=== PATIENT | male | born 1960 | race Caucasian/White ===

== ENCOUNTER 2017-10-28 08:35 | Emergency (ER) | payer OTHER ==
[2017-10-28] MEDS ORDERED: IV NORMAL SALINE 1,000ML 1,000 ML IV SCH (09:19)
[2017-10-28] MEDS ORDERED: ONDANSETRON PF 4 MG/2 ML VIAL. ONE (09:32)
[2017-10-28] MEDS ORDERED: ONDANSETRON PF 4 MG/2 ML VIAL. IV ONE (09:45)
[2017-10-28 09:47] LABS: BASO # 0.1 x10^3/uL (0.0-0.2); BASO % 1 % (0-3); EOS # 0.2 x10^3/uL (0.0-0.7); EOS % 2 % (0-3); HEMATOCRIT 43.9 % (39.0-53.0); HEMOGLOBIN 15.6 g/dL (13.0-17.5); LYMPH # 2.4 x10^3/uL (1.0-4.8); LYMPH % 28 % (24-48); MEAN CORPUSCULAR HEMOGLOBIN 31 pg (25-35); MEAN CORPUSCULAR HGB CONC 35 g/dL (31-37); MEAN CORPUSCULAR VOLUME 88 fL (79-100); MONO % 12 % (0-9); NEUT # 4.9 x10^3uL (1.8-7.7); NEUT % 58 % (31-73); PLATELET COUNT 249 x10^3/uL (140-400); RED BLOOD COUNT 4.98 x10^6/uL (4.30-5.70); RED CELL DISTRIBUTION WIDTH 12.6 % (11.5-14.5); WHITE BLOOD COUNT 8.5 x10^3/uL (4.0-11.0)
[2017-10-28 10:09] LABS: ALBUMIN 3.9 g/dL (3.4-5.0); CALCIUM 9.4 mg/dL (8.5-10.1); CREATININE 0.9 mg/dL (0.7-1.3); GFR 87.3; POTASSIUM 4.2 mmol/L (3.5-5.1); TOTAL BILIRUBIN 0.4 mg/dL (0.2-1.0); TOTAL PROTEIN 7.8 g/dL (6.4-8.2)
--- NOTE | 2017-10-28 10:21 | RAD ---
Chest x-ray Indication: Left arm pain Technique: PA and lateral views of the chest Comparison: None Findings: Heart is normal in size. Lungs are clear. No pneumothorax or pleural effusion. Visualized bony thorax is within normal limits. Impression: No acute cardiopulmonary process.
--- NOTE | 2017-10-28 12:35 | RAD ---
COMPLETE ABDOMINAL ULTRASOUND Clinical History: Elevated lipase, abdominal discomfort Comparison: None. Technique: Sonographic examination of the abdomen was performed and multiple grayscale and duplex Doppler static images were obtained. Findings: Study is limited due to bowel gas. Patient also had breakfast. The liver measures 15.9 cm. It demonstrates diffuse increased echogenicity consistent with steatosis. Portal flow is hepatopetal. The common bile duct is normal in caliber, measuring 0.3 cm in diameter. The gallbladder wall is not thickened. There is no cholelithiasis or pericholecystic fluid. The pancreas is not well visualized due to overlying bowel gas. The right kidney is normal in morphology and echotexture and measures 12.2 x 6.5 x 6.5 cm. The left kidney is normal in morphology and echotexture and measures 12.1 x 5.7 x 6.2 cm. There is no hydronephrosis. The spleen is not enlarged, measuring 11.2 cm. Visualized portions of the abdominal aorta appear normal. The aorta measures up to 1.9 cm. The IVC is not well visualized due to bowel gas. IMPRESSION: 1. No acute process visualized by ultrasound. 2. Hepatic steatosis.
[2017-10-28] MEDS ORDERED: PRED20TA PO (13:02)
--- NOTE | 2017-10-28 13:03 | PHYS DOC ---
Past History Past Medical History: No Pertinent History Past Surgical History: Other Alcohol Use: None Drug Use: None Adult General Chief Complaint Chief Complaint: UPPER EXTREMITY PAIN HPI HPI Patient is a 57-year-old male brought to the ED by his . Patient is complaining of numbness and tingling sensation of his left arm which he has had since Thursday. Patient believes it is his second, third, and fourth fingers that are affected. It is described at sometimes as a "ache" on the underside of his arm. Sometimes it feels like "when you put your time on a battery". He has no chest pain. No shortness of breath. He has nausea but no vomiting. Some generalized abdominal discomfort. A few episodes of diarrhea. He has been tired. He's had no runny nose, no cough. Patient states he has had increased stress both with his job and with his family. Patient feels anxiety and he feels lightheaded. Patient states he has had episodes like this twice in the past. In 2015 he went to [place] and was evaluated. He had a nuclear stress test that was reported to be normal. He has never had a heart catheter. In 2014 he states he was admitted here and also had a nuclear stress test at that time which was reported to be negative. Both of those times, the patient believes his symptoms lasted about 1 or 2 weeks and went away by themselves. Patient did not really follow up with his primary care doctor for further evaluation, after the symptoms went away he just considered it over at that time. Patient is not a smoker. PCP at [facility] Review of Systems Review of Systems Constitutional: Denies fever or chills [] HENT: Denies nasal congestion or sore throat [] Respiratory: Denies cough or shortness of breath [] Cardiovascular: No chest pain, the pain and symptoms are of the left arm only GI: As in history of present illness : Denies dysuria or hematuria [] Musculoskeletal: Denies back pain or joint pain [] Integument: Denies rash or skin lesions [] Neurologic: Denies headache, focal weakness or sensory changes [] All other systems were reviewed and found to be within normal limits, except as documented in this note. Current Medications Current Medications Current Medications Medications (Trade) Dose Ordered Sig/Louise Start Time Stop Time Status Last Admin Dose Admin Ondansetron HCl (Zofran) 4 mg [employer] ONCE 10/28/17 09:32 10/28/17 09:33 DC Sodium Chloride 1,000 ml @ 1,000 mls/hr Q1H 10/28/17 09:19 10/28/17 10:18 DC 10/28/17 09:38 1,000 MLS/HR Allergies Allergies Allergies Coded Allergies Type Severity Reaction Last Updated Verified No Known Drug Allergies 10/28/17 No Physical Exam Physical Exam Constitutional: Well developed, well nourished, no acute distress, non-toxic appearance. Alert, appropriate, mentating normally, no acute distress, warm and dry. Vital signs stable. HENT: Normocephalic, atraumatic, bilateral external ears normal, nose normal. [ ] Eyes: conjunctiva normal, no discharge. [] Neck: Normal range of motion, no stridor. [] Cardiovascular:Heart rate regular rhythm, no murmur [] Lungs & Thorax: Bilateral breath sounds clear to auscultation [] Abdomen: Bowel sounds normal, soft, nondistended, no masses, no pulsatile masses. Very mild diffuse tenderness to palpation especially in the upper abdomen. Nonlocalized. No rebound or guarding. Skin: Warm, dry, no erythema, no rash. [] Extremities: No tenderness, no cyanosis, no clubbing, ROM intact, no edema. [] Neurologic: Alert and oriented X 3, normal motor function, no focal deficits noted. [] Current Patient Data Vital Signs Vital Signs Date Time Temp Pulse Resp B/P (MAP) Pulse Ox O2 Delivery O2 Flow Rate FiO2 10/28/17 12:25 80 144/62 (89) 97 Room Air 10/28/17 08:48 98.3 22 Lab Results Laboratory Tests Test 10/28/17 09:29 White Blood Count 8.5 x10^3/uL (4.0-11.0) Red Blood Count 4.98 x10^6/uL (4.30-5.70) Hemoglobin 15.6 g/dL (13.0-17.5) Hematocrit 43.9 % (39.0-53.0) Mean Corpuscular Volume 88 fL (79-100) Mean Corpuscular Hemoglobin 31 pg (25-35) Mean Corpuscular Hemoglobin Concent 35 g/dL (31-37) Red Cell Distribution Width 12.6 % (11.5-14.5) Platelet Count 249 x10^3/uL (140-400) Neutrophils (%) (Auto) 58 % (31-73) Lymphocytes (%) (Auto) 28 % (24-48) Monocytes (%) (Auto) 12 % (0-9) H Eosinophils (%) (Auto) 2 % (0-3) Basophils (%) (Auto) 1 % (0-3) Neutrophils # (Auto) 4.9 x10^3uL (1.8-7.7) Lymphocytes # (Auto) 2.4 x10^3/uL (1.0-4.8) Monocytes # (Auto) 1.0 x10^3/uL (0.0-1.1) Eosinophils # (Auto) 0.2 x10^3/uL (0.0-0.7) Basophils # (Auto) 0.1 x10^3/uL (0.0-0.2) Sodium Level 136 mmol/L (136-145) Potassium Level 4.2 mmol/L (3.5-5.1) Chloride Level 100 mmol/L (98-107) Carbon Dioxide Level 27 mmol/L (21-32) Anion Gap 9 (6-14) Blood Urea Nitrogen 12 mg/dL (8-26) Creatinine 0.9 mg/dL (0.7-1.3) Estimated GFR (Cockcroft-Gault) 87.3 BUN/Creatinine Ratio 13 (6-20) Glucose Level 95 mg/dL (70-99) Calcium Level 9.4 mg/dL (8.5-10.1) Magnesium Level 2.0 mg/dL (1.8-2.4) Total Bilirubin 0.4 mg/dL (0.2-1.0) Aspartate Amino Transferase (AST) 31 U/L (15-37) Alanine Aminotransferase (ALT) 61 U/L (16-63) Alkaline Phosphatase 83 U/L (46-116) Creatine Kinase 111 U/L (39-308) Creatine Kinase MB (Mass) 0.8 ng/mL (0.0-3.6) Creatine Kinase MB Relative Index 0.7 % (0-4) Troponin I Quantitative < 0.017 ng/mL (0-0.055) DF-Woc-I-Type Natriuretic Peptide 10 pg/mL (0-124) Total Protein 7.8 g/dL (6.4-8.2) Albumin 3.9 g/dL (3.4-5.0) Albumin/Globulin Ratio 1.0 (1.0-1.7) Lipase 476 U/L (73-393) H EKG EKG 12-lead EKG read by me. Sinus rhythm. Heart rate 64. There are no acute ST or T wave changes indicative of ischemia or infarction. No STEMI. No rhythm disturbance.[id number][] Radiology/Procedures Radiology/Procedures [] Course & Med Decision Making Course & Med Decision Making Pertinent Labs and Imaging studies reviewed. (See chart for details) 57-year-old male presents with 5 day history of left arm symptoms including numbness, tingling, and somewhat of shock like complaints. His left arm symptoms do sound somewhat radicular although he thinks they go to his second, third, and fourth fingers. He says they definitely don't go to his thumb or pinky finger. Not sure what to make of that. He doesn't have any pain in his neck, no neck injury. Also he is having nausea, abdominal discomfort, and diarrhea. I don't believe these 2 things are likely to be related. He's had episodes of similar left arm complaints in the past without the GI symptoms. Cardiac evaluation negative. Lipase is mildly elevated. I ordered an abdominal ultrasound and although the pancreas was not well seen due to intestinal gas, it was a negative study otherwise. Pt remained stable and comfortable in the ED. I discussed with the patient and his that we have not explained his symptoms but have ruled out some serious causes. With ongoing symptoms for literally days, I feel that a negative EKG and cardiac enzymes does rule out cardiac ischemia as a cause. I explained this to the patient and his . I urged him to follow up with his primary care doctor. Patient is frustrated that "they can ever figure out what is wrong with him" and that his arm is bothering him. I feel that There is reasonably good chance that this may be some type of radiculopathy or nerve pain. I feel that a short course of prednisone as a trial would be reasonable. Patient wants to try that. See instructions for plan. [] Dragon Disclaimer Dragon Disclaimer This electronic medical record was generated, in whole or in part, using a voice recognition dictation system. Departure Departure: Impression: Primary Impression: Left arm pain Additional Impressions: Cervical radiculopathy Elevated lipase Disposition: 01 HOME, SELF-CARE Condition: STABLE Referrals: THEA BAUER MD (PCP) Patient Instructions: Cervical Radiculopathy, [id number] Additional Instructions: As we discussed, I believe we should try treating your left arm symptoms with a short course of prednisone and see if that helps. If it is a "pinched nerve or some other type of nerve pain or inflammation, that often will help. Follow-up with your primary care doctor for further evaluation. Your lipase, pancreas enzyme, was mildly elevated. I recommend clear liquids for 2 days then diet as tolerated. Discuss this with your primary care doctor. They were not able to get a good look at your pancreas on the ultrasound today. If symptoms persist, they might want to repeat an ultrasound as an outpatient. Scripts Prednisone (PREDNISONE) 20 Mg Tablet 1 TAB PO BID, #10 TAB Prov: APARNA BARRETT MD 10/28/17 Problem Qualifiers APARNA BARRETT MD Oct 28, 2017 13:03
[2017-10-28 13:24] VITALS: BP 153/81
--- NOTE | 2017-10-28 15:49 | EKG ---
[address] [address] Test Date: 2017-10-28 Test Time: 08:44:32 Pat Name: RAFAEL LO Department: Room: Gender: M Order Entry Technician: GUSTAVO : 1960 Requested By: APARNA BARRETT Order Number: [id number] Reading MD: Michael Agrawal Measurements Intervals [place] Rate: 64 P: 61 OR: 176 QRS: 44 QRSD: 100 T: 34 QT: 400 QTc: 417 Interpretive Statements SINUS RHYTHM Electronically Signed On 11-02-2017 16:41:58 LABORATORY IMMUNOLOGIST by Michael Agrawal
== END 2017-10-28 13:25 | disposition home or self-care (01) ==
LOC: ER 08:35
DX: M79.602 Pain in left arm (principal); M54.12 Radiculopathy, cervical region; R74.8 Abnormal levels of other serum enzymes; R10.84 Generalized abdominal pain; R19.7 Diarrhea, unspecified
CPT/HCPCS: 36415; 71020; 76700; 80053; 82553; 83690; 83735; 83880; 84484; 85025; 93005; 96361; 96374; 99285; J2405; J7030

== ENCOUNTER 2018-01-31 17:50 | Emergency (ER) | payer OTHER ==
[~2018-01-31] VITALS: Ht 177.8 cm; Wt 126.1 kg
[~2018-01-31 17:50] MED LIST: PRED20TA PO
[2018-01-31 19:01] VITALS: BP 187/101
[2018-01-31] MEDS ORDERED: FLUT12AE IH (19:21)
--- NOTE | 2018-01-31 19:21 | PHYS DOC ---
Past History Past Medical History: No Pertinent History Past Surgical History: Tonsillectomy, Other Alcohol Use: None Drug Use: None Adult General Chief Complaint Chief Complaint: LOWER EXTREMITY EDEMA HPI HPI Patient is a 57 year old M who presents with bilateral lower extremity swelling over the past 2 days. Jimenez states that he has had respiratory symptoms over the past 6 weeks. He was initially tested negative for the flu but given Tamiflu. He feels that his symptoms did not resolve and was then started on azithromycin. He feels that his symptoms improved slightly however worsened thereafter. He was started on Levaquin 2 days ago for his cough. He has also been taking multiple cough medications and ibuprofen 600 mg as needed. He states that he noticed his leg swelling 2 days ago. It is in both legs and equal. He describes mild tightness in his ankles bilaterally. He denies redness or warmth and either leg. He denies shortness of breath when lying flat. He has no pain. He is urinating regularly without difficulty. He has no other associated symptoms. He has no other exacerbating or relieving factors. He has had multiple cardiac workups for her previous chest pain that of all been negative. His last stress test was approximately 6 months ago and was found to be negative. He takes no medications on a regular basis. He is not a smoker nor see a former smoker. He has no family history of heart disease. He has no other risk factors. Review of Systems Review of Systems Constitutional: Denies fever or chills [] Eyes: Denies change in visual acuity, redness, or eye pain [] HENT: Denies nasal congestion or sore throat [] Respiratory: Denies shortness of breath [] Cardiovascular: No additional information not addressed in HPI [] GI: Denies abdominal pain, nausea, vomiting, bloody stools or diarrhea [] : Denies dysuria or hematuria [] Musculoskeletal: Denies back pain or joint pain [] Integument: Denies rash or skin lesions [] Neurologic: Denies headache, focal weakness or sensory changes [] Endocrine: Denies polyuria or polydipsia [] All other systems were reviewed and found to be within normal limits, except as documented in this note. Family History Family History No pertinent family medical history was reported Current Medications Current Medications Current medications reviewed Allergies Allergies Allergies Coded Allergies Type Severity Reaction Last Updated Verified No Known Drug Allergies 10/28/17 No Physical Exam Physical Exam Constitutional: Well developed, well nourished, no acute distress, non-toxic appearance. [] HENT: Normocephalic, atraumatic, Eyes: EOMI, conjunctiva normal, no discharge. [] Neck: Normal range of motion, no tenderness, supple, no stridor. [] Cardiovascular:Heart rate regular rhythm, no murmur [] Lungs & Thorax: Bilateral breath sounds clear to auscultation [] Abdomen: Bowel sounds normal, soft, no tenderness, no masses, no pulsatile masses. [] Skin: Warm, dry, no erythema, no rash. [] Back: No tenderness, no CVA tenderness. [] Extremities: No tenderness, no cyanosis, no clubbing, ROM intact, bilateral symmetric pitting edema from the feet to the mid lower leg. No erythema or tenderness noted. Neurologic: Alert and oriented X 3, normal motor function, normal sensory function, no focal deficits noted. [] Psychologic: Affect normal, judgement normal, mood normal. [] Current Patient Data Vital Signs Vital Signs Date Time Temp Pulse Resp B/P (MAP) Pulse Ox O2 Delivery O2 Flow Rate FiO2 01/31/18 17:50 97.9 73 18 97 Room Air EKG EKG [] Radiology/Procedures Radiology/Procedures [] Course & Med Decision Making Course & Med Decision Making Pertinent Labs and Imaging studies reviewed. (See chart for details) Differential diagnosis was discussed with Terry. It was explained that he could have renal dysfunction, heart failure secondary to many different causes, DVT, lymphadenopathy or many other conditions. He was explained that labs and imaging may assist in narrowing that differential diagnosis. Understanding was expressed and further workup was declined at this time. Vasquez symptoms may be secondary to his respiratory status as well as his regular NSAID usage and recent antibiotic usage. Dragon Disclaimer Dragon Disclaimer This electronic medical record was generated, in whole or in part, using a voice recognition dictation system. Departure Departure: Impression: Primary Impression: Bronchitis Additional Impression: Peripheral edema Disposition: 01 HOME, SELF-CARE Condition: STABLE Referrals: THEA BAUER MD (PCP) Patient Instructions: Acute Bronchitis, Peripheral Edema Additional Instructions: Terry was seen in the emergency department for cough and leg swelling. No emergency medical condition was found on history or physical exam. His symptoms are most consistent with bronchitis. He was encouraged to use an inhaled steroid for which she was provided with a prescription. He was also encouraged to use compression stockings and elevate his legs while at rest for swelling. He was encouraged to weigh himself daily. He was advised to be evaluated by his doctor or return to the emergency room as soon as possible if he develops chest pain, shortness of breath, pain/redness/warmth in one of his legs and/or unexpected weight gain. He is advised follow-up with his primary care doctor in the next 3-5 days for further management. Scripts Fluticasone Propionate (FLOVENT 110MCG HFA) 12 Gm Aer.w.adap 2 PUFF IH BID for 7 Days, #1 INHALER 2 Refills Prov: LIDA REYNOLDS MD 01/31/18 Problem Qualifiers LIDA REYNOLDS MD Jan 31, 2018 19:21
== END 2018-01-31 19:30 | disposition home or self-care (01) ==
LOC: ER 17:50
DX: R60.1 Generalized edema (principal); J40 Bronchitis, not specified as acute or chronic
CPT/HCPCS: 99282